=== PATIENT | female | born 1975 | race American Indian/Alaskan Native ===

== ENCOUNTER 2018-01-04 13:26 | Emergency (ER) | payer SELFPAY ==
[2018-01-04 13:40] VITALS: BP 124/79
[2018-01-04 14:07] LABS: Hematocrit 28.8 % (30.3-42.9); Hemoglobin 9.3 gm/dl (10.1-14.3); Mean Corpuscular HGB Conc 32 % (30-34); Platelet Count 425 K/mm3 (140-440); Red Blood Count 4.24 M/mm3 (3.65-5.03)
[2018-01-04 14:08] LABS: Mean Corpuscular Hemoglobin 22 pg (28-32); Mean Corpuscular Volume 68 fl (79-97); Red Cell Distribution Width 21.1 % (13.2-15.2)
[2018-01-04 14:53] LABS: Acanthocytes 1+; Anisocytosis 1+; Hypochromasia 2+; Poikilocytosis 2+; Total Cells Counted 100
[2018-01-04 14:54] LABS: Large Platelets Few; Ovalocytes 1+; Platelet Estimate Cons; Schistocytes Few; Target Cells Rare; Tear Drop Cells Few
[2018-01-04 15:37] LABS: Alanine Aminotransferase 10 units/L (7-56); Albumin 3.8 g/dL (3.9-5); BUN/Creatinine Ratio 6; Blood Urea Nitrogen 4 mg/dL (7-17); Calcium 9.4 mg/dL (8.4-10.2); Hemolysis Index 69
[2018-01-04] MEDS ORDERED: NORCO 7.5/325 PO ONE (16:34)
[2018-01-04] MEDS ORDERED: ZOFRAN ODT PO ONE (16:34)
[2018-01-04] MEDS ORDERED: BENTYL IM ONE (16:34)
[2018-01-04] MEDS ORDERED: PEPCID PO ONE (16:34)
--- NOTE | 2018-01-04 16:44 | Emergency Department Report ---
ED Abdominal Pain HPI - General Chief Complaint: Abdominal Pain Stated Complaint: ULCER Time Seen by Provider: 01/04/18 16:20 Source: patient Mode of arrival: Ambulatory Limitations: No Limitations - History of Present Illness Initial Comments: Patient is a 42-year-old [place] female past medical history ulcers and GERD who is presenting with epigastric discomfort for the past 3-4 days. Patient states she has some nausea and burning sensation in the epigastrium with acid taste in her mouth and some burning in the chest periodically. Patient's had this issue in the past but has not taken anything prescription. Patient has taken some [id number] acid reduction meds which is not helping. Patient denies any fevers chills vomiting diarrhea at this time. - Related Data Previous Rx's Medication Instructions Recorded Last Taken Type Dicyclomine [Bentyl] 10 mg PO QID 3 Days capsule 01/04/18 Unknown Rx HYDROcodone/APAP 5-325 [[place] 1 each PO Q4HR PRN #12 tablet 01/04/18 Unknown Rx 5/325] Omeprazole 20 mg PO DAILY #30 tablet. 01/04/18 Unknown Rx Ondansetron [Zofran Odt] 4 mg PO Q8HR PRN #10 tab.rapdis 01/04/18 Unknown Rx Allergies Allergy/AdvReac Type Severity Reaction Status Date / Time No Known Allergies Allergy Unverified 01/04/18 13:39 ED Review of Systems ROS: Stated complaint: ULCER Other details as noted in HPI Comment: All other systems reviewed and negative ED Past Medical Hx - Surgical History Additional Surgical History: gallbladder removed - Social History Smoking Status: Current Every Day Smoker - Medications Home Medications: Home Medications Medication Instructions Recorded Confirmed Last Taken Type Dicyclomine [Bentyl] 10 mg PO QID 3 Days capsule 01/04/18 Unknown Rx HYDROcodone/APAP 5-325 [[place] 1 each PO Q4HR PRN #12 tablet 01/04/18 Unknown Rx 5/325] Omeprazole 20 mg PO DAILY #30 tablet. 01/04/18 Unknown Rx Ondansetron [Zofran Odt] 4 mg PO Q8HR PRN #10 tab.rapdis 01/04/18 Unknown Rx ED Physical Exam - General Limitations: No Limitations General appearance: alert, in no apparent distress - Head Head exam: Present: atraumatic, normocephalic - Eye Eye exam: Present: normal appearance - ENT ENT exam: Present: mucous membranes moist - Neck Neck exam: Present: normal inspection - Respiratory Respiratory exam: Present: normal lung sounds bilaterally. Absent: respiratory distress, wheezes, rales - Cardiovascular Cardiovascular Exam: Present: regular rate, normal rhythm. Absent: systolic murmur, diastolic murmur, rubs, gallop - GI/Abdominal GI/Abdominal exam: Present: soft, tenderness (epigastrium), normal bowel sounds. Absent: distended, guarding, rebound, rigid - Extremities Exam Extremities exam: Present: normal inspection - Back Exam Back exam: Present: normal inspection - Neurological Exam Neurological exam: Present: alert, oriented X3 - Psychiatric Psychiatric exam: Present: normal affect, normal mood - Skin Skin exam: Present: warm, dry, intact, normal color. Absent: rash ED Course Vital Signs 01/04/18 13:35 Temperature 98.5 F Pulse Rate 83 Respiratory 16 Rate Blood Pressure 124/79 O2 Sat by Pulse 99 Oximetry ED Medical Decision Making - Lab Data Result diagrams: 01/04/18 13:51 01/04/18 13:51 - Medical Decision Making Patient will be started on a PPI given meds for symptomatic relief and be referred to gastroenterology. Patient be discharged home. Critical care attestation.: If time is entered above; I have spent that time in minutes in the direct care of this critically ill patient, excluding procedure time. ED Disposition Clinical Impression: PUD (peptic ulcer disease) Disposition: DC-01 TO HOME OR SELFCARE Is pt being admited?: No Does the pt Need Aspirin: No Condition: Stable Instructions: Peptic Ulcer (ED) Referrals: ABIMBOLA WOLF MD [Staff Physician] - 3-5 Days
== END 2018-01-04 17:00 | disposition home or self-care (01) ==
LOC: ED 13:26
DX: K27.9 Peptic ulcer, site unspecified, unspecified as acute or chronic, without hemorrhage or perforation (principal); F17.200 Nicotine dependence, unspecified, uncomplicated; Z90.49 Acquired absence of other specified parts of digestive tract
CPT/HCPCS: 36415; 80053; 85007; 85025; 96372; 99283; J0500; Q0162